=== PATIENT | male | born 1985 | race African-American/Black ===

== ENCOUNTER 2019-09-06 07:52 | Emergency (ER) | payer SELFPAY ==
--- NOTE | 2019-09-06 08:40 | RADIOLOGY REPORT (SQ) ---
EXAM DESCRIPTION: KNEE RIGHT 4 VIEWS IMAGES COMPLETED DATE/TIME: 09/06/2019 8:25 am REASON FOR STUDY: swelling, pain COMPARISON: None. NUMBER OF VIEWS: Four views. TECHNIQUE: AP, lateral, and both oblique radiographic images acquired of the right knee. LIMITATIONS: None. FINDINGS: MINERALIZATION: Normal. BONES: No acute fracture or dislocation. No worrisome bone lesions. JOINT: No effusion. Joint space narrowing in all compartments most marked in the medial compartment and patellofemoral compartment. SOFT TISSUES: No soft tissue swelling. No radio-opaque foreign body. OTHER: No other significant finding. IMPRESSION: Osteoarthritic changes. No acute findings. TECHNICAL DOCUMENTATION: JOB ID: [id number] 2010 [employer]- All Rights Reserved Reading location - IP/workstation name: [email or web address]
--- NOTE | 2019-09-06 09:18 | ER Document Report ---
ED Extremity Problem, Lower - General Chief Complaint: Knee Pain Stated Complaint: KNEE PAIN Time Seen by Provider: 09/06/19 09:04 Notes: CHIEF COMPLAINT: Right knee injury 5 days ago HPI: 33-year-old male presenting with right medial knee pain for 5 days. With getting into bed felt something pop in the medial aspect of the knee now with pain with walking does not feel like the knee is unstable. Denies hip or ankle discomfort ROS: See HPI - all other systems were reviewed and are otherwise negative Constitutional: no fever Integumentary: no rash Allergy: no hives Musculoskeletal: + extremity pain or swelling Neurological: no numbness/tingling, no weakness MEDICATIONS: I agree with the patient medications as charted by the RN. ALLERGIES: I agree with the allergies as charted by the RN. PAST MEDICAL HISTORY/PAST SURGICAL HISTORY: Reviewed and agree as charted by RN. SOCIAL HISTORY: Reviewed and agree as charted by RN. FAMILY HISTORY: No significant familial comorbid conditions directly related to patient complaint EXAM: Reviewed vital signs as charted by RN. CONSTITUTIONAL: Alert and oriented and responds appropriately to questions. Well-appearing; well-nourished HEAD: Normocephalic; atraumatic EYES: Conjunctivae clear, sclerae non-icteric ENT: normal nose; no rhinorrhea; moist mucous membranes NECK: Supple without meningismus CARD: symmetric distal pulses RESP: Normal chest excursion without splinting or tachypnea ABD/GI: non-distended BACK: The back appears normal EXT: Normal ROM in all joints; very slight soft tissue swelling to the medial aspect of the right knee with tenderness on palpation. No laxity on varus or valgus rotation. Negative anterior drawer sign. Patient with subjective increased discomfort with full extension of the right leg at the knee no discomfort with flexion. SKIN: Normal color for age and race; warm; dry; good turgor; no acute lesions noted NEURO: Moves all extremities equally; Motor and sensory function intact PSYCH: The patient's mood and manner are appropriate. Grooming and personal hygiene are appropriate. MDM: 33-year-old male with injury to the medial aspect of the right knee x-ray shows osteoarthritis no other acute changes likely soft tissue injury will place patient in a knee immobilizer, he declines crutches. Anti-inflammatories orthopedic follow-up - Related Data Allergies/Adverse Reactions: No Known Allergies Allergy (Unverified 09/06/19 08:01) Past Medical History - Social History Smoking Status: Current Every Day Smoker Frequency of alcohol use: Heavy Drug Abuse: None Family History: Reviewed & Not Pertinent Physical Exam - Vital signs Vitals: Temp Pulse Resp BP Pulse Ox 98.3 F 90 18 146/99 H 100 09/06/19 07:57 09/06/19 07:57 09/06/19 07:57 09/06/19 07:57 09/06/19 07:57 Course - Vital Signs Vital signs: Temp Pulse Resp BP Pulse Ox 98.3 F 90 18 146/99 H 100 09/06/19 07:57 09/06/19 07:57 09/06/19 07:57 09/06/19 07:57 09/06/19 07:57 Procedures - Immobilization Right Medial Knee Time completed: 09:16 Pre-Proc Neuro Vasc Exam: Normal Immobilizer type: Knee immobilizer Performed by: PCT Post-Proc Neuro Vasc Exam: Normal, Unchanged from pre-exam Alignment checked and good: Yes Discharge - Discharge Clinical Impression: Right knee injury Qualifiers: Encounter type: initial encounter Qualified Code(s): S89.91XA - Unspecified injury of right lower leg, initial encounter Condition: Stable Disposition: HOME, SELF-CARE Additional Instructions: 1. ice and elevate the lower extremity as much as possible 2. weight bearing as tolerated with splint on 3. medications for pain as prescribed 4. follow up with orthopedics for further evaluation and treatment, call for appt. 5. do not sleep in the knee immobilizer, take off at night or rest. Prescriptions: Diclofenac Sodium [Voltaren 50 Mg Madalyn.] 50 mg PO BID #20 tablet. Referrals: CARL POSADA MD [ACTIVE PROVISIONAL STAFF] - Follow up as needed
[2019-09-06 09:47] VITALS: BP 134/91
== END 2019-09-06 09:45 | disposition home or self-care (01) ==
LOC: ER 07:52
DX: S89.91XA Unspecified injury of right lower leg, initial encounter (principal); X58.XXXA Exposure to other specified factors, initial encounter; F17.200 Nicotine dependence, unspecified, uncomplicated
CPT/HCPCS: 99283